=== PATIENT | female | born 1995 | race Caucasian/White ===

== ENCOUNTER 2025-04-13 15:10 | Emergency (ER) | payer OTHER ==
[2025-04-13 15:21] VITALS: TEMP 98.2
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
[2025-04-13] MEDS: IBUPROFEN 600 MG TAB PO STA (16:19)
[2025-04-13 16:49] VITALS: BP 108/69; PULSE 69; RESP 17
== END 2025-04-13 16:55 | disposition home or self-care (01) ==
LOC: EC 15:10
DX: S80.01XA Contusion of right knee, initial encounter (principal); V49.40XA Driver injured in collision with unspecified motor vehicles in traffic accident, initial encounter; Y92.410 Unspecified street and highway as the place of occurrence of the external cause
CPT/HCPCS: 99283